=== PATIENT | female | born 1995 | race African-American/Black ===

== ENCOUNTER 2016-05-25 10:14 | Emergency (ER) | payer OTHER ==
[~2016-05-25] VITALS: Ht 157.5 cm; Wt 65.3 kg
[2016-05-25 11:19] VITALS: BP 104/70
[2016-05-25] MEDS ORDERED: AMOXICILLIN500 MG ORAL (11:19)
[2016-05-25 11:29] VITALS: BP 104/70
--- NOTE | 2016-05-27 09:23 | Emergency Room Report ---
History of Present Illness General Chief Complaint: Earache Source: Patient Present Illness HPI Patient presents with complaints of right ear pain Ongoing for the past several days Patient also complains of sore throat Pain is 4/10 denies any change with hearing denies any fevers or chills denies any neck pain or photophobia Denies any recent travel or trauma Patient History Past Medical History: see triage record Pertinent Family History: none Now: Yes : 2 Para: 1 Reviewed Nursing Documentation: PMH: Agreed, PSxH: Agreed Nursing Documentation-PMH Past Medical History: No Stated History Review of Systems All Other Systems: negative except mentioned in HPI Physical Exam Vital Signs Date Time Temp Pulse Resp B/P Pulse Ox O2 Delivery O2 Flow Rate FiO2 05/25/16 10:26 98.2 92 18 104/70 100 Room Air Sp02 EP Interpretation: reviewed, normal General Appearance: well appearing, no apparent distress Head: normocephalic, atraumatic Eyes: bilateral eye EOMI, bilateral eye PERRL ENT: pharyngeal erythema, other - Right tympanic membrane is erythematous and mildly bulging Neck: supple, thyroid normal Respiratory: lungs clear Cardiovascular #1: regular rate, rhythm Gastrointestinal: non tender, soft Genitourinary: no CVA tenderness Musculoskeletal: normal inspection Neurologic: alert, oriented x3, responsive Skin: normal color, no rash Lymphatic: no adenopathy Medical Decision Making Diagnostic Impression: Primary Impression: otitis media ER Course Patient appears to have findings in line with right-sided otitis media Is placed on oral antibiotics in stable for initial conservative outpatient trial Last Vital Signs Date Time Temp Pulse Resp B/P Pulse Ox O2 Delivery O2 Flow Rate FiO2 05/25/16 11:29 98.2 18 104/70 100 Room Air 05/25/16 10:26 92 Status: improved Disposition: HOME, SELF-CARE Condition: Stable Scripts Amoxicillin* (AMOXIL*) 500 Mg Capsule 500 MG ORAL THREE TIMES A DAY, #15 CAP Prov: KAISER WHITTEN D.O. 05/25/16 Referrals: [facility],REFERRING (PCP) Patient Instructions: Otitis Media, Adult Additional Instructions: Patient is provided with the discharge instructions notified to follow up with primary doctor in the next 2-3 days otherwise return to the er with any worsening symptoms. Please note that this report is being documented using [email or web address] technology. This can lead to erroneous entry secondary to incorrect interpretation by the dictating instrument. KAISER WHITTEN D.O. May 27, 2016 09:23
== END 2016-05-25 11:30 | disposition home or self-care (01) ==
LOC: EMR 11:15
DX: H66.91 Otitis media, unspecified, right ear (principal); R07.0 Pain in throat; O26.90 Pregnancy related conditions, unspecified, unspecified trimester; Z3A.00 Weeks of gestation of pregnancy not specified
CPT/HCPCS: 99283